=== PATIENT | female | born 1995 | race American Indian/Alaskan Native ===

== ENCOUNTER 2017-09-05 15:01 | Emergency (ER) | payer BC ==
[2017-09-05] MEDS ORDERED: Sodium Chloride 0.9% 10 ML Syringe FLUSH PRN ×2 (16:03→16:11)
[2017-09-05] MEDS ORDERED: Ketorolac 30 MG/ML SDV IVPUSH ONE (16:03)
[2017-09-05] MEDS ORDERED: Ampicillin/Sulbactam Na 3 GM in Sodium Chloride 0.9% 100 ML IV ONE (16:04)
[2017-09-05] MEDS ORDERED: Iopamidol 612 MG/ML 100 ML Bottle IVPUSH ONE (16:11)
[2017-09-05] MEDS ORDERED: Sodium Chloride 0.9% 1,000 ML IV SCH (16:15)
--- NOTE | 2017-09-05 19:09 | EDM.PDOC ---
ED HPI GENERAL MEDICAL PROBLEM - General Chief Complaint: ENT Problem Stated Complaint: POSS ABSCESS TONSIL Time Seen by Provider: 09/05/17 15:51 Source of Information: Reports: Patient, Provider History Limitations: Reports: No Limitations - History of Present Illness INITIAL COMMENTS - FREE TEXT/NARRATIVE: The patient presents with a sore throat. This started about 3 days ago. She has a history of strep infections. She went to walk in clinic and she was strep positive. They sent her here because they were worried about a peritonsilar abscess. She has edema to the right side of her throat. She has had a fever at home but none here. She has a slight cough. She says it is hard to swallow at times. She has no shortness of breath. Onset: Gradual Duration: Day(s): (3) Location: Reports: Other (Throat) Quality: Reports: Sharp Severity: Moderate Improves with: Reports: None Worsens with: Reports: Movement Associated Symptoms: Reports: Fever/Chills. Denies: Chest Pain, Cough, Headaches, Nausea/Vomiting, Shortness of Breath throat Pain Score (Numeric/FACES): 8 - Related Data Allergies Allergy/AdvReac Type Severity Reaction Status Date / Time No Known Allergies Allergy Verified 09/05/17 16:31 Home Meds: Home Meds Penicillin V Potassium 500 mg PO Q6HR #40 tab 09/05/17 [Rx] Past Medical History - Past Health History Medical/Surgical History: Denies Medical/Surgical History HEENT History: Reports: Other (See Below) Other HEENT History: strep throat Social & Family History - Family History Family Medical History: Noncontributory - Tobacco Use Smoking Status *Q: Never Smoker - Caffeine Use Caffeine Use: Reports: Soda - Recreational Drug Use Recreational Drug Use: No ED ROS ENT - Review of Systems Review Of Systems: See Below Constitutional: Reports: Fever, Chills HEENT: Reports: Throat Pain, Throat Swelling Respiratory: Reports: No Symptoms Cardiovascular: Reports: No Symptoms Endocrine: Reports: No Symptoms GI/Abdominal: Reports: No Symptoms : Reports: No Symptoms Musculoskeletal: Reports: No Symptoms ED EXAM, ENT - Physical Exam Exam: See Below Exam Limited By: No Limitations General Appearance: Alert, No Apparent Distress Ears: Normal External Exam Nose: Normal Inspection Mouth/Throat: Tonsillar Erythema (Right side), Tonsillar Exudates, Tonsillar Swelling (Right side), Other (Moderate edema to the right peritonssilar area) Head: Atraumatic, Normocephalic Neck: Lymphadenopathy (R) Respiratory/Chest: No Respiratory Distress, Lungs Clear, Normal Breath Sounds Cardiovascular: Regular Rate, Rhythm, No Edema, No Murmur GI/Abdominal: Soft, Non-Tender, No Organomegaly, No Mass Back: Normal Inspection Course - Vital Signs Last Recorded V/S: Last Vital Signs Temp 98.7 F 09/05/17 15:29 Pulse 88 09/05/17 15:29 Resp 18 09/05/17 15:29 BP 132/74 09/05/17 15:29 Pulse Ox 100 09/05/17 15:29 - Orders/Labs/Meds Orders: Active Orders 24 hr Category Date Time Status Peripheral IV Care [RC] . DIRECTED Care 09/05/17 16:03 Active Soft Tissue Neck w Cont [CT] Stat Exams 09/05/17 16:04 Taken Sodium Chloride 0.9% [Normal Saline] 1,000 ml Med 09/05/17 16:15 Active IV ASDIRECTED Sodium Chloride 0.9% [Saline Flush] Med 09/05/17 16:03 Active 10 ml FLUSH ASDIRECTED PRN Sodium Chloride 0.9% [Saline Flush] Med 09/05/17 16:11 Active 10 ml FLUSH ONETIME PRN Peripheral IV Insertion Adult [OM.PC] Stat Oth 09/05/17 16:03 Ordered Medication Orders Sodium Chloride (Normal Saline) 1,000 mls @ 125 mls/hr IV ASDIRECTED MANOJ Last Admin: 09/05/17 16:43 Dose: 125 mls/hr Sodium Chloride (Saline Flush) 10 ml FLUSH ASDIRECTED PRN PRN Reason: Keep Vein Open Last Admin: 09/05/17 16:45 Dose: 10 ml Sodium Chloride (Saline Flush) 10 ml FLUSH ONETIME PRN PRN Reason: IV FLUSH Last Admin: 09/05/17 17:23 Dose: 10 ml Labs: Laboratory Tests 09/05/17 09/05/17 09/05/17 Range/Units 16:20 16:20 16:20 WBC 14.44 H (3.98-10.04) K/mm3 RBC 4.20 (3.98-5.22) M/mm3 Hgb 12.5 (11.2-15.7) gm/L Hct 36.9 (34.1-44.9) % MCV 87.9 (79.4-94.8) fl MCH 29.8 (25.6-32.2) pg MCHC 33.9 (32.2-35.5) g/dl RDW Std Deviation 41.8 (36.4-46.3) fL Plt Count 230 (182-369) K/mm3 MPV 10.0 (9.4-12.3) fl Neut % (Auto) 79.2 H (34.0-71.1) % Lymph % (Auto) 8.7 L (19.3-51.7) % [place] % (Auto) 11.4 (4.7-12.5) % Eos % (Auto) 0.3 L (0.7-5.8) Baso % (Auto) 0.1 (0.1-1.2) % Neut # (Auto) 11.43 H (1.56-6.13) K/mm3 Lymph # (Auto) 1.25 (1.18-3.74) K/mm3 [place] # (Auto) 1.65 H (0.24-0.36) K/mm3 Eos # (Auto) 0.05 (0.04-0.36) K/mm3 Baso # (Auto) 0.01 (0.01-0.08) K/mm3 Manual Slide Review Abnormal smear Sodium 141 (136-145) mEq/L Potassium 3.6 (3.5-5.1) mEq/L Chloride 105 (98-107) mEq/L Carbon Dioxide 22 (21-32) mEq/L Anion Gap 17.6 H (5-15) BUN 11 (7-18) mg/dL Creatinine 0.7 (0.55-1.02) mg/dL Est Cr Clr Drug Dosing 117.01 mL/min Estimated GFR (MDRD) > 60 (>60) mL/min BUN/Creatinine Ratio 15.7 (14-18) Glucose 88 (74-106) mg/dL Calcium 9.0 (8.5-10.1) mg/dL Total Bilirubin 1.0 (0.2-1.0) mg/dL AST 13 L (15-37) U/L ALT 15 (14-59) U/L Alkaline Phosphatase 70 (46-116) U/L Total Protein 7.6 (6.4-8.2) g/dl Albumin 3.6 (3.4-5.0) g/dl Globulin 4.0 gm/dL Albumin/Globulin Ratio 0.9 L (1-2) HCG, Qual Negative (NEGATIVE) Meds: Medications Generic Name Dose Route Start Last Admin Trade Name Freq PRN Reason Stop Dose Admin Sodium Chloride 1,000 mls @ 125 mls/hr 09/05/17 16:15 09/05/17 16:43 Normal Saline IV 125 mls/hr ASDIRECTED MANOJ Administration Sodium Chloride 10 ml 09/05/17 16:03 09/05/17 16:45 Saline Flush FLUSH 10 ml ASDIRECTED PRN Administration Keep Vein Open Sodium Chloride 10 ml 09/05/17 16:11 09/05/17 17:23 Saline Flush FLUSH 10 ml ONETIME PRN Administration IV FLUSH Discontinued Medications Generic Name Dose Route Start Last Admin Trade Name Freq PRN Reason Stop Dose Admin Ampicillin Sodium/Sulbactam 100 mls @ 200 mls/hr 09/05/17 16:04 09/05/17 16: 40 Sodium 3 gm/ Sodium Chloride IV 09/05/17 16:33 200 mls/hr ONETIME ONE Administration Iopamidol 100 ml 09/05/17 16:11 09/05/17 17:22 Isovue-300 (61%) IVPUSH 09/05/17 16:12 100 ml ONETIME ONE Administration Ketorolac Tromethamine 30 mg 09/05/17 16:03 09/05/17 16:43 Toradol IVPUSH 09/05/17 16:04 30 mg ONETIME ONE Administration - Re-Assessments/Exams Free Text/Narrative Re-Assessment/Exam: 09/05/17 19:11 I ordered an IV NS at 125mL/hr, labs, toradol and rocephin 2 grams IV. Her WBC was elevated at 14.4.. Her CMP looks good. Her HCG is negative. Her CT shows a 2cm right peritonsillar abscess. I called Dr Chowdhury and he said he could drain this tonight or tomorrow. I talked to the patient and she wanted it done today. I will send her to the ER at [place]. Departure - Departure Time of Disposition: 19:15 Disposition: Home, Self-Care 01 Condition: Good Clinical Impression: Peritonsillar abscess - Discharge Information Prescriptions: Penicillin V Potassium 500 mg PO Q6HR #40 tab Referrals: PCP,None [Primary Care Provider] - Additional Instructions: Go directly to [facility] in [place]. You will need to register for the ER and they will call Dr Chowdhury. - My Orders Last 24 Hours: My Active Orders 09/05/17 16:03 Peripheral IV Care [RC] . DIRECTED Sodium Chloride 0.9% [Saline Flush] 10 ml FLUSH ASDIRECTED PRN Peripheral IV Insertion Adult [OM.PC] Stat 09/05/17 16:04 Soft Tissue Neck w Cont [CT] Stat 09/05/17 16:11 Sodium Chloride 0.9% [Saline Flush] 10 ml FLUSH ONETIME PRN 09/05/17 16:15 Sodium Chloride 0.9% [Normal Saline] 1,000 ml IV ASDIRECTED - Assessment/Plan Last 24 Hours: My Active Orders 09/05/17 16:03 Peripheral IV Care [RC] . DIRECTED Sodium Chloride 0.9% [Saline Flush] 10 ml FLUSH ASDIRECTED PRN Peripheral IV Insertion Adult [OM.PC] Stat 09/05/17 16:04 Soft Tissue Neck w Cont [CT] Stat 09/05/17 16:11 Sodium Chloride 0.9% [Saline Flush] 10 ml FLUSH ONETIME PRN 09/05/17 16:15 Sodium Chloride 0.9% [Normal Saline] 1,000 ml IV ASDIRECTED
--- NOTE | 2017-09-08 07:59 | CT ---
CT neck Technique: Multiple axial sections through the neck were obtained. Intravenous contrast was utilized. Reconstructed coronal and sagittal images were obtained. Findings: Low density area identified within the right peritonsillar region. This finding measures up to 2.0 cm. Findings likely due to peritonsillar infection with abscess or phlegmon. Findings cause mild mass effect upon the adjacent oral cavity. Epiglottis is normal. Prevertebral soft tissues are normal. Submandibular and parotid salivary glands are within normal limits. Slightly prominent right sided lymph nodes are seen most likely reactive. Other scattered lymph nodes are seen which appear within normal limits. Visualized lung apices are clear. Bone window settings were reviewed which appear within normal limits. Impression: 1. Low-density finding within the right peritonsillar region compatible with phlegmon or peritonsillar abscess. This finding measures about 2.0 cm. 2. Several slightly prominent right sided lymph nodes believed to be reactive. 3. No additional abnormality is seen on CT study of the neck. Diagnostic code #5 I agree with preliminary report issued by [facility] ([facility] report finalized on 09/05/17, 7:37 PM Central Time)
== END 2017-09-05 19:30 | disposition home or self-care (01) ==
LOC: JD.ED 15:01
DX: J36 Peritonsillar abscess (principal); J02.9 Acute pharyngitis, unspecified
CPT/HCPCS: 36415; 70491; 80053; 84703; 85025; 96361; 96365; 96375; 99285; J0295; J1885; J7030; J7040; J7050; Q9967; 87430; 99284